=== PATIENT | female | born 1990 | race Caucasian/White ===

== ENCOUNTER 2018-09-20 11:36 | Emergency (ER) | payer BC ==
[~2018-09-20] VITALS: Ht 167.6 cm; Wt 109.1 kg
[~2018-09-20 11:36] MED LIST: ALBU17AE27 IH
[2018-09-20] MEDS ORDERED: IBUPROFEN 600 MG TABLET PO ONE (12:30)
[2018-09-20] MEDS ORDERED: ACETAMINOPHEN 325 MG TABLET PO ONE (12:30)
[2018-09-20 13:22] LABS: INFLUENZA TYPE A NEGATIVE FOR TYPE A (NEGATIVE); INFLUENZA TYPE B NEGATIVE FOR TYPE B (NEGATIVE)
[2018-09-20 15:16] VITALS: BP 100/72
== END 2018-09-20 15:18 | disposition home or self-care (01) ==
LOC: EMS 11:37
DX: J06.9 Acute upper respiratory infection, unspecified (principal); M79.10 Myalgia, unspecified site; R51 Headache; J45.909 Unspecified asthma, uncomplicated
CPT/HCPCS: 87430; 87804

== ENCOUNTER 2018-10-23 22:50 | Emergency (ER) | payer BC ==
[~2018-10-23] VITALS: Ht 167.6 cm; Wt 108.6 kg
[2018-10-23] MEDS ORDERED: ALBUTEROL SULFATE 5 MG/ML 20 ML NEB SOLN [BULK] NEB ONE (23:15)
[2018-10-23] MEDS ORDERED: IPRATROPIUM BROMIDE 0.5 MG/2.5 ML NEB SOLUTION NEB ONE (23:15)
[2018-10-23] MEDS ORDERED: 0.9% SODIUM CHLORIDE 5 ML NEB SOLUTION NEB ONE (23:47)
[2018-10-24 00:56] LABS: BASOPHILS % (AUTO) 0.5 % (0.0-2.0); EOSINOPHILS % (AUTO) 4.6 % (1.0-6.0); HEMATOCRIT 38.8 % (36-46); HEMOGLOBIN 12.8 g/dL (12.0-16.0); LYMPHOCYTES # (AUTO) 2.7 K/uL (1.0-4.8); LYMPHOCYTES % (AUTO) 38.5 % (22.0-44.0); MEAN CORPUSCULAR HEMOGLOBIN 27.7 pg (26.0-34.0); MEAN CORPUSCULAR VOLUME 84 fL (80-100); MONOCYTES # (AUTO) 0.4 K/uL (0.1-1.0); MONOCYTES % (AUTO) 5.5 % (2.0-9.0); NEUTROPHILS # (AUTO) 3.5 K/uL (1.8-7.7); NEUTROPHILS % (AUTO) 50.9 % (40.0-70.0); PLATELET COUNT (AUTO) 159 K/uL (150-450); RED BLOOD CELL COUNT(AUTO) 4.61 MIL/uL (4.00-5.20); RED CELL DISTRIBUTION WIDTH 14.4 % (11.5-14.5)
[2018-10-24 01:10] LABS: ANION GAP 7 mmol/L (8-16); CARBON DIOXIDE 29 mmol/L (22-29); CHLORIDE 103 mmol/L (98-107); GLOMERULAR FILTR. RATE CALC > 60 mL/min (>60); GLUCOSE,RANDOM 127 mg/dL (70-110); POTASSIUM 3.8 mmol/L (3.5-5.1); SODIUM SERUM 139 mmol/L (136-145); UREA NITROGEN, BLOOD 16 mg/dL (7-18)
[2018-10-24 01:22] LABS: HCG,QUANTITATIVE < 1 mIU/mL (0-6)
[2018-10-24] MEDS ORDERED: PredniSONE 20 MG TABLET PO ONE (01:30)
[2018-10-24 01:40] VITALS: BP 137/80
== END 2018-10-24 01:51 | disposition home or self-care (01) ==
LOC: EMS 22:50
DX: J45.901 Unspecified asthma with (acute) exacerbation (principal)
CPT/HCPCS: 36415; 80048; 84702; 85025; 94644; 99285; J7512